=== PATIENT | male | born 1960 | race Caucasian/White ===

== ENCOUNTER 2019-12-30 11:43 | Emergency (ER) | payer OTHER ==
[~2019-12-30] VITALS: Ht 185.4 cm; Wt 99.8 kg
--- NOTE | 2019-12-30 11:45 | NUR ---
Patient to ER bed 07 to gown for evaluation. Side rails up.
[2019-12-30 11:58] VITALS: BP_SYST 132
--- NOTE | 2019-12-30 12:07 | NUR ---
Patient arrived via POV, AAOx4, and ambulatory with steady gait. Patient c/c of right low back pain, vomiting x 1, and kidney pain bilaterally. Patient states he has recent history of kidney stones, for approximately 2 weeks. Patient notes a rash to right lower/midback. Patient is calm and cooperative. States he took tramadol with limited relief. States it helped the kidney pain, but not the pain from rash. Patient had one episode of vomiting in parking lot prior to arrival. Patient states no dizziness, but a "churning" type of pain in the abdomen that makes him feel nauseous.
--- NOTE | 2019-12-30 12:08 | NUR ---
Dr Schmidt at bedside examining patient
[2019-12-30] MEDS ORDERED: KETOROLAC TROMETHAMINE 60 MG/2 ML VIAL IM ONE (12:15)
[2019-12-30 12:35] LABS: BASOPHILS % (AUTO) 0.6 % (0.0-2.0); EOSINOPHILS % (AUTO) 0.7 % (0.0-4.0); HEMATOCRIT 40.8 % (36-54); HEMOGLOBIN 14.1 g/dL (14.0-18.0); LYMPHOCYTES # (AUTO) 0.6 K/uL (1.0-5.5); MEAN CORPUSCULAR HEMOGLOBIN 31 pg (27-31); MEAN CORPUSCULAR HGB CONC 35 % (32-36); MEAN CORPUSCULAR VOLUME 89 fL (79.0-98.0); MONOCYTES # (AUTO) 0.5 K/uL (0.0-1.0); MONOCYTES % (AUTO) 9.8 % (1.7-9.3); NEUTROPHILS # (AUTO) 3.6 K/uL (1.8-7.7); NEUTROPHILS % (AUTO) 75.9 % (40.0-70.0); PLATELET COUNT (AUTO) 181 K/uL (130-430); RED CELL DISTRIBUTION WIDTH 13.1 % (9.0-15.0); WHITE BLOOD COUNT (AUTO) 4.8 K/uL (4.8-10.8)
[2019-12-30 12:40] LABS: CALCIUM 8.4 mg/dL (8.4-11.0); CREATININE 0.86 mg/dL (0.55-1.30)
--- NOTE | 2019-12-30 12:42 | NUR ---
Patient to CT scan via wheelchair, escorted by radiology staff. Will follow up upon return.
[2019-12-30 12:45] LABS: ALBUMIN 3.4 g/dL (3.4-4.8); PROTHROMBIN TIME 10.4 SECS (9.5-12.5); TOTAL BILIRUBIN 0.5 mg/dL (0.0-1.0)
[2019-12-30 14:28] VITALS: BP_SYST 132
--- NOTE | 2019-12-30 14:28 | NUR ---
Patient given written and verbal discharge instructions and verbalizes understanding. ER MD discussed with patient the results and treatment provided. Patient in stable condition. ID arm band removed. Rx of [place] and Acyclovir given. Patient educated on pain management and to follow up with PMD. Pain Scale 2/10. Opportunity for questions provided and answered. Medication side effect fact sheet provided.
== END 2019-12-30 14:28 | disposition home or self-care (01) ==
LOC: SED 11:43
DX: N20.0 Calculus of kidney (principal); B02.9 Zoster without complications
CPT/HCPCS: 36415; 74176; 80053; 81002; 82150; 83690; 85025; 85610; 85730; 96372; 99284; J1885